=== PATIENT | female | born 1990 | race Caucasian/White ===

== ENCOUNTER 2024-10-19 08:09 | Emergency (ER) | payer MEDICAID, SELFPAY ==
[2024-10-19 08:10] VITALS: BMI 37.1
[2024-10-19 08:20] VITALS: BP 108/73; PULSE 86; RESP 19; TEMP 37.2; O2SAT 99
[2024-10-19] MEDS: KETOROLAC INJ 30 MG/ML VIAL IM (08:29)
[2024-10-19 09:01] LABS: Basophils % (Auto) 0 % (0-2.5); Eosinophils # (Auto) 0.3 Thou/mm3 (0.0-0.5); Eosinophils % (Auto) 2 % (0-10); Hemoglobin 13.9 g/dL (12.0-16.0); Immature Granulocytes % (Auto) 1 % (0-0); Immature Granulocytes Auto 0.06 Thou/mm3 (0.00-0.00); Lymphocytes # (Auto) 3.6 Thou/mm3 (1.0-4.8); Lymphocytes % (Auto) 28 % (10-50); Mean Corpuscular HGB Conc 33.9 g/dl (31.0-37.0); Mean Corpuscular Hemoglobin 30.3 pg (25.0-35.0); Mean Corpuscular Volume 89 fL (80-100); Monocytes # (Auto) 0.6 Thou/mm3 (0.0-0.8); Monocytes % (Auto) 5 % (0-12); Neutrophils # (Auto) 8.3 Thou/mm3 (1.8-7.7); Neutrophils % (Auto) 65 % (37-80); Nucleated Red Blood Cell % 0 /100 WBC (0); Platelet Count 316 Thou/mm3 (140-440); RDW Standard Deviation 40.4 fL (36.4-46.3); Red Blood Count 4.59 Miln/mm3 (4.00-5.20); White Blood Count 12.8 Thou/mm3 (3.6-11.0)
[2024-10-19 09:12] LABS: Collection Type, Urine Clean Catch
[2024-10-19 09:13] LABS: HCG,Qualitative Serum Negative
[2024-10-19 09:20] LABS: Alanine Aminotransferase 47 U/L (10-49); Albumin, Serum 4.5 gm/dL (3.5-5.0); Albumin/Globulin Ratio 1.8 (1.2-2.2); Alkaline Phosphatase 64 U/L (46-116); Anion Gap 10 (7-16); Aspartate Amino Transferase 49 U/L (0-34); BUN/Creatinine Ratio 9 Ratio (12-20); Blood Urea Nitrogen 7 mg/dL (9-23); Calcium 9.1 mg/dL (8.3-10.6); Calcium (Corrected) 9.1 mg/dL (8.5-10.1); Carbon Dioxide 24.7 mMol/L (20.0-31.0); Chloride 107 mMol/L (98-107); Creatinine (Component) 0.8 mg/dL (0.6-1.3); Estimated Creatinine Clearance 103.5 mL/min (>60); Globulin 2.5 gm/dL (2.3-3.5); Glucose 131 mg/dL (74-106); Lipase 40 U/L (12-53); Osmolality,Calculated 283 (275-295); Sodium 142 mMol/L (136-145); eGFR > 60 See Note
[2024-10-19 09:39] LABS: Bacteria,Urine Rare; Bilirubin,Urine Negative (Negative); Blood,Urine Negative (Negative); Calcium Oxalate Crystals,Urine 1+; Color,Urine Yellow (Lt Yel-Yel); Glucose, Urine Negative (Negative); Ketones,Urine Negative (Negative); Leukocyte Esterase,Urine Positive (Negative); Nitrite,Urine Negative (Negative); Protein,Urine Trace (Neg - Trace); RBC,Urine 12 /hpf (0-3); Specific Gravity,Urine 1.038 (1.001-1.035); Squamous Epithelial Cell,Urine 3 /hpf (0-5); WBC,Urine 11 /hpf (0-5)
[2024-10-19 09:58] LABS: Clarity,Urine Hazy (Clear/Hazy); Culture Indicated,Urine Yes
--- NOTE | 2024-10-19 10:29 | XR_ITS ---
Examination: CT abdomen and pelvis without contrast. Coronal 3-D reconstructions. Sagittal 2-D reconstructions. Date and time of exam:October 19, 2024 1034 hours INDICATIONS: Onset left-sided flank pain with nausea today CTDI: vol (mGy): 9.98 DLP: (mGycm): 589 Technique: Axial images of the abdomen have been obtained, 3 mm slice thickness Intravenous contrast material has not been administered. Low dose protocols were performed. One or more of the following dose reduction techniques were used; automated exposure control, adjustment of the mA and/or KV according to patient size, use of iterative reconstruction technique. Findings: No focal liver or splenic lesions No definite gallstones No pancreatic or adrenal mass Moderate left mild right renal parenchymal scar formation 2 mm lower pole left renal calculus, no hydronephrosis or ureteral calculi Aorta normal size Normal appendix No bowel obstruction No pelvic mass Contracted urinary bladder Grade 1 spondylolisthesis L5 on S1 IMPRESSION: Moderate left mild right renal parenchymal scar formation 2 mm lower pole left renal calculus No hydronephrosis or ureteral calculi Normal appendix
--- NOTE | 2024-10-19 11:18 | EDNOTE_ITS ---
ED Abdominal Pain RME/HPI General Chief Complaint: Abdominal Pain Stated complaint: SEVERE UPPER ABD PAIN, 1010, SINCE THIS AM Time seen by provider: 10/19/24 08:22 Arrival date/time: 10/19/24 08:09 34-year-old female presents to the emergency department for complaints of generalized abdominal pain and left flank pain. Patient reports no fever no vomiting Limitations: no limitations Related Data Home Medications ?Medication ?Instructions ?Recorded ?Confirmed escitalopram oxalate 5 mg tablet 5 mg PO QDAY 01/19/20 01/19/20 (Lexapro) Previous Rx's ?Medication ?Instructions ?Recorded acetaminophen 325 mg capsule 650 mg (2 x 325 mg) PO QI D PRN 01/19/20 pain #30 caps ibuprofen 600 mg tablet 600 mg PO Q8H PRN pain #30 t abs 01/19/20 diphenhydramine HCl 25 mg capsule 25 mg PO TID PRN all ergic reaction 08/19/23 (Allergy (diphenhydramine)) #20 caps loratadine 10 mg tablet 10 mg PO QDAY #30 tabs 08/18 ciprofloxacin HCl 500 mg tablet 500 mg PO BID 7 days # 14 tabs 10/19/24 ibuprofen 800 mg tablet 800 mg PO TID PRN pain #30 t abs 10/19/24 ondansetron 4 mg disintegrating 4 mg PO Q8H PRN nausea and 10/19/24 tablet vomiting #10 tabs Allergies Allergy/AdvReac Type Severity Reaction Status Date / Time No Known Allergies Allergy Verified 10/19/24 08:12 Review of Systems Review of Systems Systems Reviewed: All systems reviewed, normal except as documented Constitutional Constitutional: Reports system reviewed and no additional complaints, except as documented, Denies fever(s) and Denies headache(s) Eyes Eyes: Reports system reviewed and no additional complaints, except as documented and Denies blurry vision ENT Ears, Nose, Mouth, and Throat: Reports system reviewed and no additional complaints, except as documented, Denies headache(s), Denies nasal congestion and Denies nasal discharge Cardiovascular Cardiovascular: Reports system reviewed and no additional complaints, except as documented, Denies chest pain and Denies dyspnea Respiratory Respiratory: Reports system reviewed and no additional complaints, except as documented, Denies chest congestion, Denies cough and Denies dyspnea Gastrointestinal Gastrointestinal: Reports system reviewed and no additional complaints, except as documented and Denies abdominal pain Integumentary/Breasts Skin/Breast: Reports system reviewed and no additional complaints, except as documented and Denies rash Neurologic Neurologic: Reports system reviewed and no additional complaints, except as documented, Reports as per HPI and Denies headache(s) Past Medical History Past Medical History CARDIAC: Negative Congestive Heart Failure RESPIRATORY: Negative Chronic Obstructive Pulmonary Disease (COPD) GENITOURINARY: Negative Renal Disease ENDOCRINE: Negative Diabetes Mellitus Type 1 or Diabetes Mellitus Type 2 Social History SMOKING STATUS: Current every day smoker ED Exam General Limitations: Present no limitations General appearance: Present alert and in no apparent distress Head Head exam: Present atraumatic, normocephalic and normal inspection Eye Eye exam: Present normal appearance, PERRL and EOMI; Absent conjunctival injection ENT ENT exam: Present normal exam, normal oropharynx and mucous membranes moist Neck Neck exam: Present normal inspection, full ROM and trachea midline Chest Chest inspection: Present normal inspection and symmetric chest wall rise Respiratory Respiratory exam: Present normal lung sounds bilaterally Cardiovascular Cardiovascular exam: Present regular rate, normal rhythm and normal heart sounds Abdominal Exam Abdominal exam: Present soft, tenderness and normal bowel sounds; Absent distention, guarding, rebound, rigidity, Garcia's sign, Rovsing's sign or tenderness at McBurney's Point Abdominal tenderness: Absent RUQ or RLQ Extremities Exam Extremities exam: Present normal inspection, full ROM, tenderness and normal capillary refill; Absent pedal edema, joint swelling or calf tenderness Back Exam Back exam: Present normal inspection and full ROM Neurological Exam Neurological exam: Present alert, oriented X3, CN II-XII intact, normal gait and reflexes normal; Absent motor sensory deficit Psychiatric Psychiatric exam: Present normal affect and normal mood Skin Skin exam: Present warm, dry, intact and normal color; Absent rash Course Quality Measures none Orders Category Date Time Status CT abdomen pelvis wo con Stat Exams 10/19/24 10:29 Completed CBC Stat Lab 10/19/24 08:46 Completed Comprehensive Metabolic Panel Stat Lab 10/19/24 08:46 Completed HCG,Qualitative Serum Stat Lab 10/19/24 08:46 Completed Lipase Stat Lab 10/19/24 08:46 Completed UA, C/S IF [Urinalysis, C/S if Indicated] Stat Lab 10/19/24 08:50 Completed Urine Culture Stat Lab 10/19/24 08:50 Received HYDROcodone*/APAP 5/325 [[place] 5/325] Med 10/19/24 11:15 Discontinued 1 tab PO X1 ONE Ketorolac Inj [Toradol Inj] Med 10/19/24 08:25 Discontinued 30 mg IM X1 ONE Lidocaine 1% 20 ml [Xylocaine 1% 20 ML] Med 10/19/24 11:15 Discontinued 2.1 ml INFL X1 ONE cefTRIAXone [Rocephin] Med 10/19/24 11:15 Discontinued 1,000 mg IM X1 ONE Vital Signs Vital signs: Vital Signs Temperature 98.9 F 10/19/24 08:20 Pulse Rate 86 10/19/24 08:20 Respiratory Rate 19 10/19/24 08:20 Blood Pressure 108/73 10/19/24 08:20 Pulse Oximetry (%) 99 10/19/24 08:20 Oxygen Delivery Method Room Air 10/19/24 08:20 O2 saturation 99% room air with normal limits Abdominal Pain MDM MDM Narrative MDM Narrative:: 34-year-old female presents to the emergency department for complaints of generalized abdominal pain and left flank pain. Patient reports no fever no vomiting Lab work and imaging obtained no acute emergent findings noted On exam patient does not appear ill or toxic in no acute distress Patient given Toradol for pain which improved her symptoms Patient appears to have UTI patient was given Rocephin here in the emerged department discharged with antibiotics and pain medication Patient discharged home in no distress to follow-up with primary care doctor in the next 24 to 48 hours and for any worsening symptoms to return to the ER immediately Patient data External records reviewed:: [facility] [place] previous records Clinical information provided by:: patient Social determinants that could affect healthcare access:: none Patient has the following chronic illnesses:: None How is presenting disease/condition affected by chronic disease/condition?: no chronic disease Evaluation data The following diagnostics were reviewed and interpreted by me:: lab results and radiology exam(s) Lab and/or radiology exams considered but not ordered:: Labs radiology obtain Interpretation Summary: Reviewed by me Medications / Prescriptions Medications or Prescriptions considered but not ordered:: Given Medication administrations:: Medication Administration History Discontinued Medications Hydrocodone Bitart/Acetaminophen (Hydrocodone/Apap 5/325 Tablet) 1 tab PO X1 ONE Stop: 10/19/24 11:16 Last Admin: 10/19/24 11:35 Dose: 1 tab Documented By: MAXIMO Ceftriaxone Sodium (Ceftriaxone Sod Inj 1,000 Mg Vial) 1,000 mg IM X1 ONE Stop: 10/19/24 11:16 Last Admin: 10/19/24 11:35 Dose: 1,000 mg Documented By: MAXIMO Ketorolac Tromethamine (Ketorolac Inj 30 Mg/Ml Vial) 30 mg IM X1 ONE Stop: 10/19/24 08:26 Last Admin: 10/19/24 08:29 Dose: 30 mg Documented By: RYANN Lidocaine HCl (Lidocaine Hcl 1% 20 Ml Vial) 2.1 ml INFL X1 ONE Stop: 10/19/24 11:16 Last Admin: 10/19/24 11:35 Dose: 2.1 ml Documented By: MAXIMO Given Consultations Consultation(s) initiated? (list below): No Diagnosis Differential diagnosis abdominal pain: abdominal pain, acute appendicitis, constipation and diverticulitis Most likely diagnosis given after review of the tests above:: UTI Admission Indicated Admission indicated?: not indicated Admission Request Was there a request for admission?: No Disposition Plan Disposition Plan: Discharge Discharge Attestation Discharge Attestation: The patient and all family members were given an opportunity to ask questions and understood the discharge instructions. Discharge instructions specifically effects, indications for sooner follow up or return to the emergency department, and the expected course of current diagnosis. Patient condition: Stable Discharge Plan Plan Patient Disposition: HOME (Self Care) Discharge Disposition comment: Stable Prescriptions/Referrals Prescriptions/Med Rec: New ibuprofen 800 mg tablet 800 mg PO TID PRN (Reason: pain) Qty: 30 0RF ciprofloxacin HCl 500 mg tablet 500 mg PO BID 7 Days Qty: 14 0RF ondansetron 4 mg tablet,disintegrating 4 mg PO Q8H PRN (Reason: nausea and vomiting) Qty: 10 0RF No Action escitalopram oxalate [Lexapro] 5 mg Tablet 5 mg PO QDAY ibuprofen 600 mg tablet 600 mg PO Q8H PRN (Reason: pain) Qty: 30 0RF acetaminophen 325 mg capsule 650 mg PO QID PRN (Reason: pain) Qty: 30 0RF loratadine 10 mg tablet 10 mg PO QDAY Qty: 30 0RF diphenhydramine HCl [Allergy (diphenhydramine)] 25 mg capsule 25 mg PO TID PRN (Reason: allergic reaction) Qty: 20 0RF Referrals: Makayla Hong PA-C [Primary Care Provider] - 10/20/24 Problem List Clinical Impression: Abdominal pain, UTI (urinary tract infection) Patient/Caregiver Discharge Instructions Education Materials: Abdominal Pain Additional Instructions: Please follow up with your primary care doctor in the next 24-48hrs for any worsening symptoms return here immediately Print Language: Welsh Stand Alone Forms: Kath Award Info., Patient Portal Info Letter PA/LEAD SOFTWARE TEST ENGINEER Supervising Physician PA/LEAD SOFTWARE TEST ENGINEER Supervising Physician: Dr. Lowe
[2024-10-19] MEDS: HYDROcodone/APAP 5/325 TABLET 1 TAB PO (11:35)
[2024-10-19] MEDS: cefTRIAXone SOD INJ 1,000 MG VIAL 1000 MG IM (11:35)
[2024-10-19] MEDS: LIDOCAINE HCL 1% 20 ML VIAL 2.1 ML INFL (11:35)
[2024-10-19 11:42] VITALS: BP 128/66; PULSE 76; RESP 18; TEMP 36.7; O2SAT 98
== END 2024-10-19 11:43 | disposition home or self-care (01) ==
PROVIDERS: Nurse Practitioner Primary Care; Emergency Provider Family Medicine; PCP Physician Assistant
DX: N39.0 Urinary tract infection, site not specified (principal); M43.17 Spondylolisthesis, lumbosacral region; N32.89 Other specified disorders of bladder; N20.0 Calculus of kidney; N28.89 Other specified disorders of kidney and ureter
CPT/HCPCS: 36415; 74176; 80053; 81001; 83690; 84703; 85025; 87086; 96372; 99284; J0696; J1885; J3490; A9270

== ENCOUNTER 2024-12-02 09:30 | Outpatient (RCR) | payer MEDICAID, SELFPAY ==
--- NOTE | 2024-12-01 09:02 | PT.OIERPT ---
PT OP Initial Eval Patient Information Outpatient Physical Therapy Treatment Date: 12/01/24 Visit Reasons: back pain Medical Diagnosis: M54.5; M43.1 Treatment Dx #1: Back Pain Start of Care: 12/01/24 Date of Onset: Age 18 Smoking Status Smoking Status: Current every day smoker Cessation Counseling Provided: RADHA was advised that quitting smoking is the single most important factor to protect the health of themselves and their family. Discussed the benefits of quitting smoking with patient. Encouraged patient to quit smoking and provided Cessation assistance materials and resources. Tobacco Use: Cigarette Years smoked: 10 Are you interested in quitting?: No Would you like additional Smoking Cessation Counseling?: No Initial Assessment Subjective: Pt is a 34 y/o female reports of chronic back pain with intermittent tingling down the legs. Pt's past xray showed grade 1 anterolisthesis L5-S1. No MRI has been done thus far. Pt has limitation sitting, sleeping, walking, standing, chores, work duties, and recreational activities. Objective: L/S AROM: all motions are WFL with end range pain in all plane Hip PROM: all motions are WFL except IR bilaterally Hip MMTs: grossly 3+/5 Special Test (+) dao (+) SLR (+) slump Assessment: Pt demonstrate back pain with mobility deficits leading to difficulty with ADLs. Pt will attempt physical therapy if pain persist Pt will be refer back to provider for further consultation. Short Term and Emergency Spill Response Technician Goals 1) Increase L/S AROM WNL in 6 wks to be able to perform chores 2) Increase core strength WFL in 6 wks to be able to perform recreational activities 3) Decrease back pain to be able to sit and stand more than 30 mins 4) Increase hip MMTs grossly to 4-/5 in 6 wks to be able to walk more than 30 mins 5) Indep with HEP Treatment Plan 1) Manual Therapy 2) Therapeutic Activities 3) Therapeutic Exercises 4) Modalities (ice, heat, traction) Frequency and Duration: 2 x wk for 6 wks Certification Dates: 12/01/24 to 03/03/25 Procedure Charges OP PT Eval Mod Complex 30 minutes: Yes
--- NOTE | 2024-12-02 09:36 | PT.ODAYNRPT ---
PT Outpatient Daily Note OP Daily Note Outpatient Physical Therapy Treatment Date: 12/02/24 Visit Reasons: back pain Subjective: Pt has difficulty getting in/out of bed due to stiffness and back pain. Objective: Please see flow chart for list of ther ex perfomed Assessment: cues to correct form with row exercise to decrease upper trape recruitment. Pt had difficulty with nerve floss on the left LE due and limited with knee extension towards end range while performing floss. Plan: Continue with PT Length of Time (minutes) of Treatment: 30 Minutes Procedure Charges Therapeutic Exercise 30 minutes: Yes
== END 2024-12-03 23:59 | disposition home or self-care (01) ==
LOC: CPTX 09:30
PROVIDERS: PCP Physician Assistant; Referring Provider Physician Assistant; Visit Provider Physician Assistant
DX: M54.50 Low back pain, unspecified (principal); G89.29 Other chronic pain; R26.2 Difficulty in walking, not elsewhere classified; R20.2 Paresthesia of skin; Z71.6 Tobacco abuse counseling; F17.210 Nicotine dependence, cigarettes, uncomplicated
CPT/HCPCS: 97110; 97162

== ENCOUNTER 2024-12-10 09:00 | Outpatient (RCR) | payer MEDICAID, SELFPAY ==
--- NOTE | 2024-12-08 09:31 | PTNOTE_ITS ---
PT Outpatient Daily Note OP Daily Note Outpatient Physical Therapy Treatment Date: 12/08/24 Visit Reasons: Back pain Subjective: Pt c/o 7/ LBP today, mentioned that she worked these last 3 days and notices pain is worse the days shed works. 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 Objective: Please see flow sheet for ther ex list. Assessment: Pt presents in clinic with c/o high pain, poor activity tolerance today. Plan: Continue with pOC. Length of Time (minutes) of Treatment: 30 Minutes Procedure Charges Therapeutic Exercise 30 minutes: Yes
--- NOTE | 2024-12-10 09:13 | PT.ODAYNRPT ---
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 Objective: Please see flow sheet for ther ex list. Assessment: Pt demonstrates poor activity tolerance today due to high pain, modified interventions to accommodate pain complaint. Plan: continue with pOC. Length of Time (minutes) of Treatment: 30 Minutes Procedure Charges Therapeutic Exercise 30 minutes: Yes
--- NOTE | 2025-01-15 12:06 | PTNOTE_ITS ---
PT OP Progress/Discharge Note Date of Service: 01/15/25 Progress Note/DC Note Progress Note/Discharge Note: DC Note Patient Information Visit Reasons: Back pain Service Discharge Date: 01/15/25 Status Assessment: Pt has been seen for 4 visits (eval + 3 visits). Pt last treated on 12/10/24 and nos showed 01/15/25 appt. At this time Pt will be d/c from care due to non- compliance per attendance policy. Pt did not meet set goals in therapy; thank you for your referrals
== END 2025-01-03 23:59 | disposition home or self-care (01) ==
LOC: CPTX 09:00
PROVIDERS: PCP Physician Assistant; Referring Provider Physician Assistant; Visit Provider Physician Assistant
DX: M54.50 Low back pain, unspecified (principal)
CPT/HCPCS: 97110

== ENCOUNTER → 2025-01-28 | Outpatient (CLI) | payer MEDICAID, SELFPAY ==
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
== END | disposition home or self-care (01) ==
LOC: CDIM 11:57
PROVIDERS: PCP Physician Assistant; Referring Provider Physician Assistant; Visit Provider Physician Assistant
DX: M43.17 Spondylolisthesis, lumbosacral region (principal); M51.370 Other intervertebral disc degeneration, lumbosacral region with discogenic back pain only; M54.2 Cervicalgia; M16.12 Unilateral primary osteoarthritis, left hip; S19.9XXS Unspecified injury of neck, sequela; S39.92XS Unspecified injury of lower back, sequela; S79.912S Unspecified injury of left hip, sequela; V89.2XXS Person injured in unspecified motor-vehicle accident, traffic, sequela
CPT/HCPCS: 72050; 72110; 73502

== ENCOUNTER 2025-03-30 09:00 | Outpatient (RCR) | payer MEDICAID, SELFPAY ==
--- NOTE | 2025-03-23 13:04 | PT.OIERPT ---
PT OP Initial Eval Patient Information Visit Reasons: BACK PAIN Medical Diagnosis: M54.5; M54.15 Treatment Dx #1: Back Pain Start of Care: 03/23/25 Date of Onset: 6 months ago Smoking Status Smoking Status: Current every day smoker Cessation Counseling Provided: RADHA was advised that quitting smoking is the single most important factor to protect the health of themselves and their family. Discussed the benefits of quitting smoking with patient. Encouraged patient to quit smoking and provided Cessation assistance materials and resources. Tobacco Use: Cigarette Years smoked: 10 Are you interested in quitting?: No Would you like additional Smoking Cessation Counseling?: No Initial Assessment Subjective: Pt is a 35 y/o female reports of chronic back pain (11/12) worsening in the past month. Pt also continues to experience numbness in her legs L>R. Pt's past imaging showed grade 1 anterolisthesis L5-S1. No MRI has been done thus far. Pt has limitation with sitting, standing, chores, self care, cooking, taking care of the kids, and performing recreational activities. Objective: L/S AROM: all motions are 75% towards end range with pain Hip PROM: all motions are WFL except IR Hip MMTs: grossly 3/5 Special Test (+) SLR (+) slump test (+) dao Assessment: Pt demonstrate back pain with radicular symptoms L>R leading to difficulty with ADLs. Pt will attempt physical therapy if pain persist Pt will be refer back to provider for further consultation. Short Term and Nursing Home Goals 1) Increase L/S AROM WNL in 6 wks to be able to perform chores 2) Decrease back pain to 2/10 in 6 wks to be able to sit and stand more than 30 mins 3) Increase core strength WFL in 6 wks to be able to perform recreational activities 4) Increase hip MMTs grossly to 4-/5 in 6 wks to be able to walk more than 30 mins 5) Indep with HEP Treatment Plan 1) Manual Therapy 2) Therapeutic Activities 3) Therapeutic Exercises 4) Modalities (ice, heat) Frequency and Duration: 2 x wk for 6 wks Certification Dates: 03/23/25 to 06/23/25 Procedure Charges OP PT Eval Mod Complex 30 minutes: Yes
--- NOTE | 2025-03-30 09:53 | PT.ODAYNRPT ---
PT Outpatient Daily Note OP Daily Note Outpatient Physical Therapy Treatment Date: 03/30/25 Visit Reasons: BACK PAIN Subjective: Pt's back is okay but continues to have numbness in the legs. Pt's left leg feels more weak than the right. Objective: Please see flow chart for list of ther ex performed Assessment: supine heat helped patient tolerate exercises. Cues to correct nerve flossing to keep hip at 90 deg with towel assist Plan: Continue with PT Length of Time (minutes) of Treatment: 30 Minutes Procedure Charges Therapeutic Exercise 30 minutes: Yes
== END 2025-04-04 23:59 | disposition home or self-care (01) ==
LOC: CPTX 09:00
PROVIDERS: PCP Physician Assistant; Referring Provider Physician Assistant; Visit Provider Physician Assistant
DX: M54.50 Low back pain, unspecified (principal); R20.0 Anesthesia of skin; Z71.6 Tobacco abuse counseling; F17.210 Nicotine dependence, cigarettes, uncomplicated; G89.29 Other chronic pain
CPT/HCPCS: 97110; 97162

== ENCOUNTER 2025-04-20 13:30 | Outpatient (RCR) | payer MEDICAID, SELFPAY ==
--- NOTE | 2025-04-06 13:35 | PT.ODAYNRPT ---
PT Outpatient Daily Note OP Daily Note Outpatient Physical Therapy Treatment Date: 04/06/25 Visit Reasons: Back pain Subjective: Pt continues to c/o high LBP. Objective: Please see flow sheet for ther ex list. Assessment: Pt demonstrates poor activity tolerance due to pain response. Plan: Continue with pOC. Length of Time (minutes) of Treatment: 30 Minutes Procedure Charges Therapeutic Exercise 30 minutes: Yes
--- NOTE | 2025-04-08 14:01 | PT.ODAYNRPT ---
PT Outpatient Daily Note OP Daily Note Outpatient Physical Therapy Treatment Date: 04/08/25 Visit Reasons: Back pain Subjective: Pt's back is about the same. Pt likes the heat and wants to use heat while performing exercises Objective: Please see flow chart for list of ther ex performed Assessment: tolerate exercises with minimal pain. supine heat continue to allow patient to tolerate exercises. Minimal changes with pain post PT session Plan: Conitnue with PT Length of Time (minutes) of Treatment: 30 Minutes Procedure Charges Therapeutic Exercise 30 minutes: Yes
--- NOTE | 2025-04-15 14:10 | PT.ODAYNRPT ---
PT Outpatient Daily Note OP Daily Note Outpatient Physical Therapy Treatment Date: 04/15/25 Visit Reasons: Back pain Subjective: No new complaints. Objective: Please see flow sheet for ther ex list. Assessment: Decrease complaint of pain during PT session indicating progress. Plan: Progress interventions as tolerated. Length of Time (minutes) of Treatment: 30 Minutes Procedure Charges Therapeutic Exercise 30 minutes: Yes
--- NOTE | 2025-04-20 14:35 | PT.ODAYNRPT ---
PT Outpatient Daily Note OP Daily Note Outpatient Physical Therapy Treatment Date: 04/20/25 Visit Reasons: Back pain Subjective: Pt reports pain continues to be present, no changed at this time. Pt mentioned elidia has a follow up with her doctor at the end of the month. Objective: Please see flow sheet for ther ex list. Assessment: Slow progress with intervention progression due to pain response. Plan: Continue with pOC. Length of Time (minutes) of Treatment: 30 Minutes Procedure Charges Therapeutic Exercise 30 minutes: Yes
== END 2025-05-05 23:59 | disposition home or self-care (01) ==
LOC: CPTX 13:30
PROVIDERS: PCP Physician Assistant; Referring Provider Physician Assistant; Visit Provider Physician Assistant
DX: M54.15 Radiculopathy, thoracolumbar region (principal)
CPT/HCPCS: 97110